=== PATIENT | male | born 1985 | race Caucasian/White ===

== ENCOUNTER 2024-11-14 15:08 | Emergency (ER) | payer SELFPAY ==
[2024-11-14 15:10] VITALS: BP 113/75; PULSE 106; RESP 16; O2SAT 98
--- NOTE | 2024-11-14 16:15 | RT.EKG_ITS ---
APPROVED REPORT Exam: Resting ECG Reason for Exam: med control Patient Location: E HR:85 bpm ECG Measurements Heart Rate 85 AXIS NM 144 P 40 QRSd 87 QRS 62 QT 335 T 46 QTc 398 Conclusion Sinus rhythm 85 normal axis no stemi
--- NOTE | 2024-11-14 16:19 | CMSP_ITS ---
Date of service: 11/14/24 Time of Service: 16:20 Care Management Safety Plan Status Status: Involuntary (on warrent) Reason for Wait Reason for Wait: Assessment/Screening Safety Plan Safety Plan: CM will respond to ED to assess patient after patient has been medically cleared and assessed by screener. If screener deems patient meets criteria for psychiatric stabilization CM will facilitate interdepartmental huddle with [facility] screener for safety planning considerations and meet with patient to review [facility] policy and safety plan, establish individual wishes for treatment and maintain patient rights. In the interim; please note safety plan below to guide patient care while awaiting further assessment in the ED.? SAFETY PLAN: 1. Will remain on suicide precautions and in paper clothes.? 2. Will remain in room under direct supervision of one-on-one staff at all times provided by ANDREINA, STOGY ROLLER agricultural plow operator. 3. May have paper cups, plates, finger foods as well as a cardboard spoon with which to eat meals. 4. Follow [facility] Management of the Admitted Behavioral Health Patient policy. 5. Comfort bath system only. 6. No personal belongings 7. No visitors. 8. Phone: limited to legal billing analyst on [facility] cordless phone at RN discretion. 9. Due to VOLUNTARY status, if patient wishes to leave [facility], staff will contact [facility] Crisis Screener ([phone]) and On-Call Contract Implementation Analyst ([phone]) as soon as possible. In the event of elopement, notify [facility] Police ([phone]). ? If deemed appropriate for inpatient psychiatric care, safety plan will be established with patient, and care team, to adhere to patient goals, identify restrictions based on behavioral status, address nutrition, and determine allowed personal belongings, tools for hygiene and personal care. As well plan will determine level of activity including ambulation, level of supervision, visitors, and determine privileges based on level of acuity, behaviors and level of engagement by patient.
--- NOTE | 2024-11-14 16:28 | NUR.NOTE ---
Nursing Note: Came here to [place] to ?Handle responsibilities? Patient says ?people are useful and not useful to them? He is? ?Trying to prosper as much as I can.? Also Talking about a woman that doesn?t need to be influenced.Says had a PT job, trying to fix a relationship, He says he is unsure of who sent him to the hospital. Provider explained why PT is here patient voices he is okay with plan of care
[2024-11-14 16:33] LABS: Abs Immature Grans 0.01 10^3/uL (0.0-0.06); Absolute Basophil Count 0.02 10^3/uL (0.0-0.2); Absolute Eosinophil Count 0.18 10^3/uL (0.0-0.7); Absolute Lymphocyte Count 2.31 10^3/uL (1.2-3.4); Absolute Monocyte Count 0.32 10^3/uL (0.1-0.8); Absolute Neutrophil Count 3.33 10^3/uL (1.2-6.7); Basophils % 0.3 %; Eosinophils % 2.9 %; HCT 39.5 % (40.0-50.0); HGB 14.6 g/dL (13.5-17.5); Immature Grans % 0.2 %; Lymphocytes % 37.4 %; MCH 30.3 pg (27.0-33.0); MCV 82 fL (80-95); MPV 10.2 fL (8.0-11.0); Monocytes % 5.2 %; Platelet Count 204 10^3/uL (130-400); RBC 4.82 10^6/uL (4.36-5.78); RDW 12.1 % (11.8-14.1); RDW-SD 36.5 fL; WBC 6.17 10^3/uL (4.4-10.8)
--- NOTE | 2024-11-14 16:34 | NUR.NOTE ---
pt's belongings have been put into zone b and belongings sheet has been filled out. 2 staff has signed belongings sheet, pt refusing to sign belongings sheet until discharge. Nursing Note:
[2024-11-14 16:58] LABS: Salicylate < 2.8 mg/dL (<2.8)
[2024-11-14 17:01] LABS: Acetaminophen < 2 ug/mL (10-30)
[2024-11-14 17:03] LABS: ALT 28 U/L (16-63); AST 15 U/L (15-37); Albumin 3.8 g/dL (3.4-5.0); Alkaline Phosphatase 77 U/L (46-116); Anion Gap 10.8 mmol/L (3-11); BUN 14 mg/dL (7-18); Bilirubin, Total 0.6 mg/dL (0.2-1.0); CO2 26.2 mmol/L (21.0-32.0); Calcium 8.9 mg/dL (8.5-10.1); Chloride 107 mmol/L (98-107); Estimated GFR 96.97 (mL/min/1.73m2); Glucose 118 mg/dL (74-106); Potassium 3.7 mmol/L (3.5-5.1); Sodium 144 mmol/L (136-145); TSH (W/Ref FT4) 1.26 uIU/mL (0.36-3.74); Total Protein 7.1 g/dL (6.4-8.2)
[2024-11-14 17:06] LABS: ETHANOL BLOOD < 3.0 mg/dL (<10)
--- NOTE | 2024-11-14 20:59 | W.ED.GENAD ---
Discharge Plan Discharge Details Chief Complaint: PsychEval Primary Care Provider: Unknown,Unknown ED Provider: Veronica Rajan [facility] General Date/Time Provider Initiated Documentation: 11/14/24 15:41. HPI Narrative: 39-year-old male with schizophrenia presents for emergency mental health assessment due to reports of stalking and unsafe behaviors. Arrived by police escort. Patient drove from [place] to [place] to locate his ex-girlfriend. He has been stalking her and showing up at her house. Police noted he pulled over a vehicle with three children, mistaking it for his ex-girlfriend's car, then walked away. Another community member reported unsolicited presence at their doorstep. Patient is disorganized and tangential. Longstanding history of schizophrenia, on Medicaid. Non-compliant with lithium since 06/2024. States he has anxiety and takes BuSpar, but has not taken it recently. Does not admit to having schizophrenia. General Stated Complaint: PsychEval CARLOS: 2 Exam Narrative Exam Narrative: General Appearance: Alert and oriented. Agitated. Vital signs: Within normal limits. HEENT: Pupils equal, round, reactive to light and accommodation. Respiratory: Within normal limits. Cardiovascular: Cardiac rate and rhythm regular. Skin: Warm and dry, no rash. Neurological: No signs of trauma. Psychiatric: Confabulation, tangential, disorganized, paranoid, and delusional. Course Vital Signs Vital signs: Vital Signs Pulse 106 H 11/14/24 15:10 Respiratory Rate 16 11/14/24 15:10 Blood Pressure 113/75 11/14/24 15:10 Pulse Oximetry 98 11/14/24 15:10 Pulse 106 H 11/14/24 15:10 Respiratory Rate 16 11/14/24 15:10 Blood Pressure 113/75 11/14/24 15:10 Pulse Oximetry 98 11/14/24 15:10 Pain Level 0 11/14/24 15:10 Lab/Test Results Lab/Test Results: Laboratory Tests Range/Units 11/14/24 16:24 WBC (4.4-10.8) 10^3/uL 6.17 RBC (4.36-5.78) 10^6/uL 4.82 Hgb (13.5-17.5) g/dL 14.6 Hct (40.0-50.0) % 39.5 L MCV (80-95) fL 82 MCH (27.0-33.0) pg 30.3 MCHC (32.0-36.0) % 37.0 H RDW (11.8-14.1) % 12.1 Plt Count (130-400) 10^3/uL 204 MPV (8.0-11.0) fL 10.2 Immature Gran % % 0.2 Neutrophils % % 54.0 Lymphocytes % % 37.4 Monocytes % % 5.2 Eosinophils % % 2.9 Basophils % % 0.3 Nucleated RBC % (0.0-0.3) % 0.0 Absolute Neutrophils (1.2-6.7) 10^3/uL 3.33 Absolute Lymphocytes (1.2-3.4) 10^3/uL 2.31 Absolute Monocytes (0.1-0.8) 10^3/uL 0.32 Absolute Eosinophils (0.0-0.7) 10^3/uL 0.18 Absolute Basophils (0.0-0.2) 10^3/uL 0.02 Sodium (136-145) mmol/L 144 Potassium (3.5-5.1) mmol/L 3.7 Chloride (98-107) mmol/L 107 Carbon Dioxide (21.0-32.0) mmol/L 26.2 Anion Gap (3-11) mmol/L 10.8 BUN (7-18) mg/dL 14 Creatinine (0.70-1.30) mg/dL 1.0 Est GFR (CKD-EPI 2020) (mL/min/1.73m2) 96.97 Glucose (74-106) mg/dL 118 H Calcium (8.5-10.1) mg/dL 8.9 Total Bilirubin (0.2-1.0) mg/dL 0.6 AST (15-37) U/L 15 ALT (16-63) U/L 28 Alkaline Phosphatase (46-116) U/L 77 Total Protein (6.4-8.2) g/dL 7.1 Albumin (3.4-5.0) g/dL 3.8 TSH (0.36-3.74) uIU/mL 1.26 Salicylates (<2.8) mg/dL < 2.8 Acetaminophen (10-30) ug/mL < 2 Ethyl Alcohol (<10) mg/dL < 3.0 Medical Decision Making Blood work did not show acute abnormality. Initial Assessment: 39-year-old male presents with a warrant for emergency mental health assessment due to reports of stalking and unsafe behaviors. Differential Diagnosis: - Schizophrenia: longstanding history, confirmed by mother, disorganized and tangential behavior, paranoid and delusional, non-compliance with lithium. - Anxiety: claims anxiety, takes BuSpar but not recently. ED Course: - Blood work performed, no acute abnormalities. pt engaging in Confabulation, tangential. Patient arrived under warrant for emergency medical assessment. Based on my assessment, patient is a risk to himself and so the community and involuntary status warranted at this time. Patient has been compliant care was agreeable to blood work, which did not show acute abnormality and patient is medically cleared for mental health assessment with a new history of schizophrenia confirmed with his mother from from a correctional facility who personally spoke with his mother prior to patient receiving warrant for assessment. Patient does not seem to fully comprehend why he is in the emergency department. We discussed multiple concerns regarding his behavior point he does not wish to take any medication and does not admit to having schizophrenia and states he has anxiety only for which he takes BuSpar for, he also reports that he has not taken this medication for a while. Mother relates that he has not been compliant with his lithium since June. Patient is on my assessment with holding information, disorganized, paranoid and delusional. He requires inpatient hospitalization, antalgic discussion for medication management if patient, provided patient is willing to take medication. - Medically cleared for mental health assessment/involuntary status Final Assessment: Patient poses risk to self and community, non-compliant with care, medically cleared for mental health assessment. History of schizophrenia confirmed, appears disorganized, paranoid, delusional. Clinical Impression: - Schizophrenia - Anxiety Disposition: - Admission: inpatient hospitalization, risk to self and community. PFSH Social History Smoking/Tobacco Use Status: Never Smoking risk assessment performed?: Yes Alcohol Intake: never
--- NOTE | 2024-11-14 23:24 | PDOC.MHCN_ITS ---
Date of service: 11/14/24 Time of Service: 17:45 Suicide Severity Rate CSSRS Have you wished you were or wished you could go to sleep and not wake up?: No Have you actually had any thoughts of killing yourself?: No CSSRS4 Was this within the past three months?: No Screening Score Total Score: 0 Screening: Negative Mental Health Emergency Note Release [facility] release signed:: No Reason for Visit Emergency Evaluation In the last 2 weeks has the pt presented for ES prior to today?: Unknown Client Information Client is: New Safety Risk/Harm to Self or Others Current Ideation to Harm Self or Others: Yes to others. Intent: yes, has intent to harm others Plan: no, does not have a plan. Risk: Does risk to harm exist?: yes. Risk: High Risk Duty to warn indicated: No Asssessment/Mental Status Appearance: Well groomed Attitude: Cooperative, Guarded and Friendly Behavior: Unremarkable Speech: Normal Affect: Labile, Expansive and Incongurent with mood Mood: Euthymic, Expansive and Anxious Thought process: Blocking, Goal directed, Tangential and Poverty of content Hallucinations: No Delusions: yes, Grandiose and Bizarre Attention: Unremarkable Perception: Other Orientation: Disoriented in (Client unable to define timelines related to now) Time, Place and Situation Memory: Impaired in: Immediate and Recent Insight: Poor Judgement: Poor Neurovegetative Symptoms Sleep: No change Appetitie: No change Interests: No change Energy: No change Libido: No change Additional Issues: Assaultive/Threatening Behavior: Yes Medical Concerns: No Client engaged in active self harm w/weapon: No Threatening to run away: No Child reported abuse/neglect: No Voluntarily presenting for services: No Domestic violence is a concern: Yes Extreme Psychosis or extreme behavior is present: Yes Impression Client presents calm, cooperative, friendly. Client speaks with friendly tones and reduced (but not absent) nonchallenging affect and responses. Client is recently showered (this Clinician waited for client to complete shower and dine) and has eaten. Client agrees to meet with this Clinician after unorthodox introduction to the Client by the nurse sitter outside client's door. Client is in the primary Emergency Dept and appears comfortable while lying on his bed. Client presents a total lack of concern nor asks questions as to why he is at the ED or why he arrived via [facility]. Client only asks one question during entire assessment, and that is in response to medication. Client is calm and friendly, demonstrating poverty of content and question/answer driven with most questions unanswered or answered with vague details I'm working on. Client revealed serious risk to community and unnamed ex-partner (client does not accept ex label) and remains evasive, largely guarded and inaccessible to specific details during assessment. For example, client refuses to name ex-girlfriend (target) or any names, employers, locations, history, etc. At close of assessment, Client stated that his plans are tandem: it's the job and the relationship, there's not one without the other. Client is reportedly stalking ex-girlfriend and has arrived in [place] to pursue that relationship. The client presented as calm and hygienic (having just showered and eaten while Clinician waited,) wearing hospital blue scrubs and yellow grippy socks. He demonstrated cooperation and agreed to speak with the mental health clinician. However, he exhibited evasiveness, marked by a poverty of content and references to 'disaster recovery' in connection with backup plans. The client's delusions manifested in statements about his relationship with his former girlfriend, claiming to have spoken with her today and asserting, 'I did the work' so should maintain the relationship. Additionally, he stated that he has four children with her, quoting, 'I consider them all my children,' and described attending a birthday constitution party in person for one of the children shortly before embarking on his current trip. The client emphasized that returning to [place] is not an option and elaborated on a new life concept he described as 'tandem, not one without the other,' which he clarified as 'the job and life [with target] as a family. ' he reported searching for a house [place] where his target or a secondary target resides. Client alluded to not knowing where the target lives, despite evidence of appearing unwelcome at her residence multiple times in recent days. When queried about his adherence to prescribed medications, he responded, do I look like I need them? Client expressed a love for 'adrenali ne' but failed to identify any specific activities that provided him with such excitement. His demeanor remained guarded and evasive throughout the session, as he did not inquire about the purpose of his presence in the emergency department or why he was delivered via [facility]. While the client acknowledged that many details of his situation remain unsettled, he firmly stated there is no going back to [place]. He claimed to have 'relocated to [place]' and is seeking work in IT, intending to live as a family with the target. During the session, the client participated in conversation, but his contributions lacked substance. He reported a job offer in [employer] but could not provide a timeline or any contextual details about it, ultimately deeming it unsuitable due to 'family to take care of in [place]. '? Plan/Disposition Recommended Disposition: Hospitalization No and Psych Screening. Person reported agreement to plan: No Reports/communication Outcome discussed with: ED/Personnel
[2024-11-15 07:46] LABS: *AMPHETAMINES SCREEN URINE Negative (Negative); *BARBITURATES SCREEN URINE Negative (Negative); *BENZODIAZEPINES SCREEN URINE Negative (Negative); Cannabinoids THC Negative (Negative); Cocaine Screen,Urine Negative (Negative); METHADONE URINE SCREEN Negative (Negative); OPIATES URINE SCREEN Negative (Negative)
[2024-11-15 07:54] LABS: Tricyclic Antidepressants Negative (Negative)
[2024-11-15] MEDS: OLANZapine 5 MG TAB PO ×2 (08:28→20:06)
[2024-11-15 09:17] VITALS: BP 122/81; PULSE 77; RESP 16; TEMP 36.4; O2SAT 99
--- NOTE | 2024-11-15 12:45 | MHPN_ITS ---
Date of service: 11/15/24 Time of Service: 12:46 Mental Health Emergency Note Release [facility] release signed:: No Reason for Visit The client is new to [facility]. Per report/review of his MH Warrant he has been hospitalized before in [place] where [place] lives. It is unknown when he was last hospitalized however, per report of his mother he has been hospitalized 3 times since 2019. This is a re-assessment of the client face to face at bed side. In the last 2 weeks has the pt presented for ES prior to today?: Unknown Impression The client is a 39-year-old, single male who resides in [facility]. He travelled to [place] based on delusions that his ex girlfriend wanted to get back with him despite her telling him she did not and not to come. All underrepresented categories were honored during this assessment. Based on the client's current delusional thought process screening tools could not be completed. The client is asleep when this clinician arrived but woke easily with the call of his name. He reported doing alright and noted he slept alright and his appetite is fine. When asked why he was there he made a statement of having uncontrollable variables and a second opinion. He then stated he was there for employment things. He when asked to explain was unable to each time. The client's thoughts appear disorganized, and he is unable to hold a conversation which puts him at a significant risk to self and others based on witness statements from his MH Warrant. Plan/Disposition Recommended Disposition: Hospitalization facilities contacted. Plan: Client will have his second cert at 2:30pm. Both and [facility] have acknowledged having beds for him. Person reported agreement to plan: No Reports/communication Outcome discussed with: ED/Personnel
--- NOTE | 2024-11-15 15:09 | ED.PSYCHBOAR ---
Date of service: 11/15/24 Time of Service: 15:09 Psychiatric Border Handoff Update Brief Story: Stocking, lack of insight, mental health warrant. History of schizophrenia. Initial certification has been completed, second certification has been completed. Pending placement options. Status: EE Able to leave: no, this patient is an EE Behavioral Concerns: None, stable. Potential Disposition: Inpatient mental health facility Barriers to Disposition: Second certification complete Mediation Reconciliation performed: Yes Code Status ordered: Yes Diet ordered: Yes Discharge Plan Discharge Details Chief Complaint: PsychEval Clinical Impression: Schizophrenia, Lack of insight Primary Care Provider: Unknown,Unknown ED Provider: Yonatan Charles
--- NOTE | 2024-11-15 17:34 | PDOC.CMSAFE ---
Date of service: 11/15/24 Time of Service: 17:34 Care Management Safety Plan Status Status: Involuntary Reason for Wait Reason for Wait: Inpatient Admission Safety Plan Safety Plan: INVOLUNTARY FOR INPATIENT PSYCHIATRIC STABILIZATION.? Patient is appropriate in all interactions since arriving at [facility]; Pt has demonstrated appropriate coping and communication skills, has articulated his or her needs and concerns and is fully engaged during staff interactions. Safety plan has been established with patient, and care team, to adhere to patient goals, identify restrictions based on behavioral status, address nutrition, and determine allowed personal belongings, tools for hygiene and personal care. Determine level of activity including ambulation, level of supervision, visitors, and determine privileges based on behaviors and level of engagement by pt. SAFETY PLAN: 1. Will remain on suicide precautions, in paper clothes 2. Will remain in Zone B under direct supervision of one-on-one staff at all times provided by [employer]; ANDREINA, RADIO MACHINIST cut out and marking machine operator. 3. May have paper cups, plates, finger foods as well as a cardboard spoon with which to eat meals. 4. Follow [facility] Management of the Admitted Behavioral Health Patient policy. 5. Shower available in Zone B without restriction. 6. Personal belongings-soft items permitted at RN discretion. 7. Visitors-none at this time. 8. Activities: soft cart items approved per RN discretion. 9.? Bathroom available in Zone B without restriction. 10. Phone: limited to patent paralegal on [facility] cordless phone at RN discretion. Due to INVOLUNTARY status, patient is being held at [facility] by the Department of Mental Health ([facility]) until 2nd certification by [facility] Psychiatrist can be performed (within 24 hours). Staff will provide de-escalation support (CPI) as needed. If patient wishes to leave [facility], staff will contact [facility] Crisis Screener ([phone]) and Physical Instructor ([phone]) as soon as possible. In the event of elopement, notify [place] Police ([phone]). Patient is currently involuntarily at [facility]. [facility] Frontline Stoneworking Belt Sander will continue seeking placement. Please contact the Physical Instructor for any needed changes to Safety Plan. Safety plan has been provided to interdepartmental care team. Patient will be transported by [facility] at time of discharge.
--- NOTE | 2024-11-15 17:35 | PDOC.CMPRO ---
Date of service: 11/15/24 Time of Service: 17:35 Care Management Progress Note Progress Note Text Progress Note Text: CM huddled with [facility] and [facility] staff regarding Homero's plan of care. Per [facility], his second certification will happen at some point today; Zeb and Vicki are reaching out asking for documentation, when available. Per RN, Homero was being held in the ED proper until there were discharges from zone B, at which point he will be moved to zone B. Homero is involuntary, waiting for inpatient psychiatric treatment. Referrals have been sent, safety plan in place. CM will continue to follow. Social Determinants of Health Screening Will the Patient Participate in the Screening?: Declined to provide
--- NOTE | 2024-11-15 21:23 | ED.PSYCHBOAR ---
Date of service: 11/15/24 Time of Service: 21:23 Psychiatric Border Handoff Update Brief Story: Patient has been accepted for inpatient psychiatric placement by Zeb alvarez and Dr. Esteves Conversation has been performed with Daysi Pope NP. Patient has not required any behavioral interventions today. At this time his transfer is just pending transportation arrangements. Status: EE Able to leave: no, this patient is an EE Discharge Plan Disposition Patient Disposition: Psychiatric Hospital/Unit Specific Psychiatric Facility: [facility] Discharge Details Clinical Impression: Schizophrenia, Lack of insight Primary Care Provider: Unknown,Unknown ED Provider: Rich Cooper
[2024-11-16 05:50] VITALS: BP 118/81; PULSE 82; RESP 20; TEMP 36.9; O2SAT 100
[2024-11-16] MEDS: OLANZapine 5 MG TAB PO (08:34)
[2024-11-16 08:37] VITALS: BP 118/71; PULSE 85; TEMP 36.2; O2SAT 100
--- NOTE | 2024-11-16 09:31 | ED.PSYCHBOAR ---
Date of service: 11/16/24 Time of Service: 09:31 Psychiatric Border Handoff Update Brief Story: Patient was here for stocking, and lack of insight. And second certification were completed. Patient was accepted Zeb alvarez Dr. Doc was performed by Dr. Maryan Whitfield with nurse practitioner Daysi Pope. Patient has been accepted. transport and will be done by [facility]'s department. Status: EE Able to leave: would need physician/ELBA and crisis evaluation prior to leaving [facility] Mediation Reconciliation performed: Yes Code Status ordered: Yes Diet ordered: Yes Discharge Plan Disposition Patient Disposition: Psychiatric Hospital/Unit Specific Psychiatric Facility: [facility] Discharge Details Clinical Impression: Schizophrenia, Lack of insight Primary Care Provider: Unknown,Unknown ED Provider: Yonatan Charles Discharge Instructions Instructions: Schizophrenia (DC) Additional Instructions: [facility].
--- NOTE | 2024-11-16 13:48 | CMPROGNOTE_ITS ---
Date of service: 11/16/24 Time of Service: 13:48 Care Management Progress Note Progress Note Text Progress Note Text: Homero was accepted at [facility] today, and transport was arranged by [facility]; he transported to by [employer]. Social Determinants of Health Screening Will the Patient Participate in the Screening?: Declined to provide
== END 2024-11-16 09:50 ==
PROVIDERS: Physician Assistant; Emergency Provider Student in an Organized Health Care Education/Training Program
DX: Z91.148 Patient's other noncompliance with medication regimen for other reason; F20.9 Schizophrenia, unspecified; R00-R99 Symptoms, signs and abnormal clinical and laboratory findings, not elsewhere classified
CPT/HCPCS: 99285 ×3; 00123; 80053; 80307; 93005; G0378; 80320; 80329; 84443; 85025; 93010